=== PATIENT | male | born 1955 | race Caucasian/White ===

== ENCOUNTER 2018-09-19 12:50 | Emergency (ER) | payer OTHER ==
[~2018-09-19] VITALS: Ht 165.1 cm; Wt 97.5 kg
[2018-09-19] MEDS ORDERED: NORVASC5 MG PO (13:04)
[2018-09-19] MEDS ORDERED: LIPITOR 20 MG T20 M1 PO (13:05)
[2018-09-19] MEDS ORDERED: COREG6.25 MG PO (13:06)
[2018-09-19] MEDS ORDERED: NEURONTIN250 MG/5 M PER TUBE (13:07)
[2018-09-19] MEDS ORDERED: ELIGARD22.5 MG SUBQ (13:07)
[2018-09-19] MEDS ORDERED: FLOMAX0.4 MG PO (13:08)
[2018-09-19] MEDS ORDERED: PREDNISONE 5 MG5 M1 PO (13:08)
[2018-09-19] MEDS ORDERED: METFORMIN HCL500 MG PO (13:08)
[2018-09-19] MEDS ORDERED: ZYTIGA250 MG PO (13:09)
[2018-09-19] MEDS ORDERED: AZITHROMYCIN 2250 MG PO (13:10)
[2018-09-19] MEDS ORDERED: XGEVA120 MG/1.7 INJECTION (13:10)
[2018-09-19] MEDS ORDERED: ONDANSETRON HCL4 M2 PO (13:10)
[2018-09-19] MEDS ORDERED: ULTRAM 50MG TAB50 MG PO (13:11)
[2018-09-19] MEDS ORDERED: ANUSOL-HC25 MG RECTAL (14:32)
[2018-09-19 14:48] VITALS: BP 145/89
== END 2018-09-19 14:50 ==
LOC: ER 12:50
DX: K62.3 Rectal prolapse (principal); K64.4 Residual hemorrhoidal skin tags; K59.00 Constipation, unspecified; C61 Malignant neoplasm of prostate